=== PATIENT | female | born 1950 ===

== ENCOUNTER 2017-08-23 10:15 | Outpatient (CLI) | payer OTHER ==
[~2017-08-23] VITALS: Ht 152.4 cm; Wt 48.5 kg
== END 2017-08-23 10:30 | disposition home or self-care (01) ==
LOC: OFIC 805 10:15
DX: H61.23 Impacted cerumen, bilateral (principal); J31.0 Chronic rhinitis; H90.3 Sensorineural hearing loss, bilateral

== ENCOUNTER 2017-09-06 08:51 | Outpatient (CLI) | payer OTHER ==
[~2017-09-06] VITALS: Ht 152.4 cm; Wt 48.5 kg
== END 2017-09-06 09:10 | disposition home or self-care (01) ==
LOC: OFIC 805 08:51
DX: H61.23 Impacted cerumen, bilateral (principal); J31.0 Chronic rhinitis; H90.3 Sensorineural hearing loss, bilateral; J30.89 Other allergic rhinitis